=== PATIENT | male | born 1975 | race Caucasian/White ===

== ENCOUNTER 2017-05-06 10:37 | Emergency (ER) | payer BC, MEDICAID ==
[~2017-05-06] VITALS: Ht 185.4 cm; Wt 86.8 kg
[~2017-05-06 10:37] MED LIST: ALBU8.5H5 INH; AZIT250T6 PO; PRED20TA PO
[2017-05-06 10:40] VITALS: Ht 185.4 cm; Wt 86.8 kg
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
[2017-05-06] MEDS ORDERED: ACETAMINOPHEN 325 MG TAB PO ONE (12:00)
--- NOTE | 2017-05-06 12:31 | RADRPT ---
PROCEDURE: CT Brain without. CLINICAL INDICATION: Posterior head trauma, dizziness. TECHNIQUE: A CT of the brain was performed on multidetector high-resolution CT scanner utilizing a xial sections from the skull base through the vertex without contrast. The scan was reviewed in sof t tissue brain and high frequency resolution bone algorithm windows. Images were reviewed on a high -resolution PACS workstation. One or more the following does reduction techniques were utilized: Aut omated exposure control, adjustment of the mA/ or kV according to patient's size, or use of iterativ e reconstruction technique. The exam CTDI = 43.68 mGy and the DLP = 720.23 mGy-cm. DICOM images are available. COMPARISON: None available. FINDINGS: The ventricles and sulci are age-appropriate. There is no intracranial hemorrhage, mass effect or mi dline shift. No abnormal intra-axial or extra-axial fluid collections are seen. The almanzar/white cathleen er differentiation is preserved. No acute skull abnormality is noted. The visualized paranasal sinus es there is partial opacification of posterior left ethmoid air cells and mild opacification of the ethmoid air cells and left maxillary sinus. The mastoid air cells are essentially clear. IMPRESSION: 1. No acute intracranial hemorrhage, transcortical infarction or mass effect. RPTAT: HH .Rika Mcgill MD, MD Date Time Electronically viewed and signed by .Rika Mcgill MD, MD on 05/06/2017 12:30 .N/
== END 2017-05-06 12:51 | disposition home or self-care (01) ==
LOC: FTE 10:37
DX: S09.90XA Unspecified injury of head, initial encounter (principal); R51 Headache; W22.8XXA Striking against or struck by other objects, initial encounter; Y92.9 Unspecified place or not applicable
CPT/HCPCS: 70450; Z7502; Z7610